=== PATIENT | female | born 1980 | race Caucasian/White ===

== ENCOUNTER 2019-03-30 06:46 | Outpatient (CLI) | payer OTHER, SELFPAY ==
[2019-03-30 07:52] LABS: Cholesterol 183 mg/dL (0-200); HDL Direct 52 mg/dL; Triglycerides 66 mg/dL (<150)
[2019-03-30 08:03] LABS: LDL Cholesterol Direct 107 mg/dL
[2019-03-30 08:23] LABS: Thyroid Stimulating Hormone 0.985 uIU/mL (0.465-4.680)
== END 2019-03-30 06:47 | disposition home or self-care (01) ==
PROVIDERS: PCP Internal Medicine; Visit Provider Nurse Practitioner Family
DX: R94.5 Abnormal results of liver function studies (principal); F41.9 Anxiety disorder, unspecified
CPT/HCPCS: 36415; 80061; 84443

== ENCOUNTER 2019-10-12 15:29 | Outpatient (CLI) | payer OTHER, SELFPAY ==
[2019-10-12 16:27] LABS: Alanine Aminotransferase 38 U/L (4-35); Albumin Level 4.4 g/dL (3.5-5.1); Alkaline Phosphatase 66 U/L (38-126); Anion Gap 6 mmol/L (8-16); Aspartate Amino Transferase 38 U/L (14-36); Bilirubin,Total 0.5 mg/dL (0.2-1.3); Blood Urea Nitrogen 13 mg/dL (7-17); Calcium 8.7 mg/dL (8.4-10.2); Carbon Dioxide 27 mmol/L (22-30); Chloride 103 mmol/L (98-107); Estimated Glomerular Filt Rate > 60; Glucose 90 mg/dL (65-105); Potassium 4.3 mmol/L (3.4-5.0); Sodium 136 mmol/L (137-145)
== END 2019-10-12 15:30 | disposition home or self-care (01) ==
PROVIDERS: PCP Internal Medicine; Visit Provider Internal Medicine
DX: R94.5 Abnormal results of liver function studies (principal)
CPT/HCPCS: 36415; 80053

== ENCOUNTER 2020-02-23 09:34 | Outpatient (CLI) | payer OTHER, SELFPAY ==
--- NOTE | ~2020-02-23 | MR_ITS ---
EXAMINATION: MR brain/brain stem wo con EXAM DATE: 02/23/2020 11:02 INDICATION: Intractable left-sided predominant headaches. TECHNIQUE: Magnetic resonance imaging (MRI) of the brain/brain stem obtained without contrast. David al T1, axial diffusion, gradient echo (T2*), T1, T2, FLAIR sequences obtained. There is no prior st udy for comparison. FINDINGS: There are no areas of restricted diffusion to suggest acute infarction. There is no acute hemorrhage seen on the T2*, a hemosiderin sensitive sequence. No intraparenchymal brain mass. The ve ntricles are normal in size. There are no extra-axial collections. Flow voids are seen in the cereb ral arteries on the T2-weighted sequences consistent with their expected patency. The orbits are unr emarkable. Soft tissue is unremarkable. IMPRESSION: 1. Unremarkable brain MRI examination. Reviewed, dictated and finalized at location B. T OIL OPERATOR
== END 2020-02-23 09:35 | disposition home or self-care (01) ==
LOC: ANHIMG 09:43
PROVIDERS: PCP Internal Medicine; Visit Provider Internal Medicine
DX: R51.9 Headache, unspecified (principal)
CPT/HCPCS: 70551

== ENCOUNTER 2020-06-20 15:23 | Outpatient (CLI) | payer OTHER, SELFPAY ==
--- NOTE | ~2020-06-20 | MR_ITS ---
EXAMINATION: MR TMJS DATE: 06/20/2020 16:19 INDICATION: Left-sided jaw pain with popping sounds and ear pain TECHNIQUE: Magnetic resonance imaging (MRI) of the temporomandibular joints was performed without int ravenous contrast. Sequences included closed-mouth sagittal T2-weighted FSE and PD-weighted FSE and c oronal T1-weighted SE and open-mouth sagittal T2-weighted FSE and PD-weighted FSE and coronal T1-weig hted SE. COMPARISON: None. FINDINGS: The right temporomandibular joint demonstrates normal morphology of the mandibular condyle and tempor omandibular fossa with no osteophytosis or erosions. Normal biconcave morphology of the disc which is normally located in the closed and open mild positions. The bilaminar zone and lateral pterygoid mus cles and tendons appear normal. The left temporomandibular joint demonstrates normal morphology of the mandibular condyle and temporo mandibular fossa with no osteophytosis or erosions. Normal biconcave morphology of the disc which is normally located in the closed and open mild positions. The bilaminar zone and lateral pterygoid musc les and tendons appear normal. Mucous retention cyst in the right maxillary sinus. Cervical thoracic dextrocurvature. IMPRESSION: 1. Normal bilateral temporomandibular joints with normal position and morphology of the articular dis cs. Reviewed, dictated and finalized at location A. IMPRESSION: 1. Normal bilateral temporomandibular joints with normal position and morpholog y of the articular discs.
== END 2020-06-20 15:24 | disposition home or self-care (01) ==
PROVIDERS: PCP Internal Medicine; Visit Provider Dentist General Practice
DX: M26.632 Articular disc disorder of left temporomandibular joint (principal); M26.622 Arthralgia of left temporomandibular joint
CPT/HCPCS: 70336

== ENCOUNTER 2020-07-17 07:50 | Observation (INO) | payer OTHER, SELFPAY ==
--- NOTE | 2020-07-17 | ECHO_ITS ---
Patient Info Name: Ellen Stock Age: 40 years : 1980 Gender: Female Ht: 62 in Wt: 195 lbs BSA: 2.01 m2 HR: 78 bpm BP: 117 / 87 mmHg Technical Quality: Good Exam Date: 07/17/2020 2:48 PM Exam Location: [facility] Patient Status: Inpatient Admit Date: 07/17/2020 Staff Ordering Physician: Kurt Fisher MD End F[employer]isting Department: Mita Neff RDCS Attending Provider: Preston Chou MD Exam Type: CA echo doppler color flow Study Info Indications R07.9 - Chest pain, unspecified Complete two-dimensional, color flow and Doppler transthoracic echocardiogram is performed. Summary 1. Complete two-dimensional, color flow and Doppler transthoracic echocardiogram is performed. 2. Left ventricular systolic function is normal, estimated at 60-65%. Left Ventricle Left ventricular chamber dimension is normal. Left ventricular systolic function is normal, estimated at 60-65%. There is no increased left ventricular wall thickness. Left ventricular septal wall motion is normal. The left ventricular diastolic function is normal. Right Ventricle Right ventricular chamber dimension is normal. Right ventricular systolic function is normal. Left Atria Left atrial chamber dimension is normal. Right Atria Right atrial chamber dimension is normal. Aortic Valve The aortic valve is trileaflet. There is no aortic valve sclerosis. There is no aortic valve stenosis. There is no aortic valve regurgitation. Pulmonic Valve The pulmonic valve is normal. There is no pulmonic valve stenosis. There is trace pulmonic regurgitation. Mitral Valve The mitral valve has normal leaflets. There is no mitral valve stenosis. There is no mitral valve regurgitation. Tricuspid Valve The tricuspid valve leaflets are normal. There is no significant tricuspid valve stenosis. There is no tricuspid valve regurgitation. No pulmonary hypertension, estimated pulmonary arterial systolic pressure is 30 mmHg. Pericardium/Pleural The pericardium appears normal. There is no pericardial effusion. Inferior Vena Cava Normal inferior vena cava with >50% collapse upon inspiration consistent with Empty right atrial pressure, 10 mmHg. Aorta The aortic root size at the sinus of Valsalva is normal. The prox ascending aorta size is normal. Left Ventricular Outflow Tract Name Value Normal LVOT 2D LVOT Diameter 2.0 cm LVOT Doppler LVOT Peak Velocity 103 cm/s LVOT Peak Gradient 4 mmHg LVOT Mean Gradient 2 mmHg LVOT VTI 19 cm LVOT VTI/AV VTI Ratio 0.7 LVOT Stroke Volume 59 ml LVOT CO 4.9 l/min LVOT CI 2.4 l/min/m2 Pulmonic Valve Name Value Normal RVOT Doppler
--- NOTE | ~2020-07-17 | CT_ITS ---
EXAMINATION: CTA chest PE protocol DATE: 07/17/2020 17:27 CDT INDICATION: Chest pain TECHNIQUE: Computed tomographic angiography (CTA) of the chest was performed with 100 mL Omnipaque-35 0 intravenous contrast. The dose-length product was 412.16 mGy-cm. Maximum intensity projection 3D-re constructions of the aorta and other arteries were constructed by the technologist on a separate work station. Automated exposure control and iterative reconstruction technique were employed. COMPARISON: CT dated 04/01/2005 FINDINGS: Study is technically adequate without evidence for pulmonary embolism. No significant pleur al or pericardial effusion. No evidence for aortic aneurysm or dissection. Small hiatal hernia. Heart size normal. No thoracic lymphadenopathy. There is soft tissue in the anterior mediastinum, likely residual thymus. No endobronchial lesions. D ependent atelectasis. No focal airspace consolidation. No pneumothorax. No acute osseous abnormality. IMPRESSION: 1. No acute cardiopulmonary disease. No evidence for pulmonary embolism. Reviewed, dictated and finalized at location A.
--- NOTE | ~2020-07-17 | XR_ITS ---
EXAMINATION: XR chest 2V DATE: 07/17/2020 08:11 INDICATION: Central chest pain TECHNIQUE: PA and lateral views of the chest are obtained. COMPARISON: 02/18/2019 FINDINGS: The lungs are free of acute opacities. There is no pleural effusion or pneumothorax. The ca rdiomediastinal silhouette is normal. The visualized bones and soft tissues are unremarkable. Surgica l clips in the right upper quadrant are likely from prior cholecystectomy. IMPRESSION: 1. No acute cardiopulmonary abnormality. Reviewed, dictated and finalized at location A.
[2020-07-17 07:54] VITALS: BP 129/82; PULSE 92; RESP 21; TEMP 36.8; O2SAT 100
--- NOTE | 2020-07-17 08:04 | ECG_ITS ---
Measurements Intervals [place] Rate: 95 P: 57 MD: 160 QRS: 85 QRSD: 89 T: 47 QT: 355 QTc: 447 Interpretive Statements SINUS RHYTHM NORMAL ECG Electronically Signed On 07-17-2020 13:51:33 CDT by Ulices Campos D.O.
[2020-07-17 08:16] LABS: Basophils Absolute Auto 0.1 K/mm3 (0.0-0.1); Basophils Percent Auto 0.7 % (0.2-1.2); Eosinophils Absolute Auto 0.1 K/mm3 (0-0.3); Eosinophils Percent Auto 1.6 % (0-4.4); Hematocrit 37.6 % (37.0-47.0); Hemoglobin 12.9 g/dL (12.0-15.0); Immature Granulocyte Absolute 0.06 K/mm3 (0.00-0.031); Immature Granulocyte Percent A 0.9 % (0-0.5); Lymphocytes Absolute Auto 2.54 K/mm3 (0.9-3.2); Lymphocytes Percent Auto 36.9 % (18.3-44.2); Mean Corpuscular HGB Conc 34.3 g/dl (32-36); Mean Corpuscular Hemoglobin 30.9 pg (26-34); Mean Platelet Volume 9.5 fl (7.4-10.4); Monocytes Absolute Auto 0.6 K/mm3 (0.1-0.6); Monocytes Percent Auto 8.3 % (2.6-8.5); Neutrophils Absolute Auto 3.6 K/mm3 (1.3-6.7); Neutrophils Percent Auto 51.6 % (45.5-73.1); Platelet Count Result 227 k/mm3 (150-375); Red Blood Count 4.18 M/mm3 (4.2-5.4); Red Cell Distribution Width 12.2 % (11.5-14.5); White Blood Count 6.9 K/mm3 (4.5-10.0)
--- NOTE | 2020-07-17 08:23 | ED.CHESTPAIN ---
HPI - Chest Pain General Chief Complaint: Chest Pain Stated Complaint: CP Time Seen by Provider: 07/17/20 07:58 Source: RN notes reviewed History of Present Illness HPI narrative: Patient presents to emergency room from home for chest pain. Patient states she was seen at her desk approximately 7 AM this morning she had midsternal chest pain rating to his bilateral shoulders and her back. Described as a pressure associated with nausea and a feeling of shortness of breath. Patient states she is still in the pain at this time states nothing makes the pain better or worse she denies any fevers or chills abdominal pain vomiting or any other symptoms denies any previous cardiac history Related Data Allergies Allergy/AdvReac Type Severity Reaction Status Date / Time No Known Allergies Allergy Unknown Verified 07/17/20 08:06 Review of Systems Review of Systems: Narrative: Gen.: Denies fevers or chills ENT: Denies congestion Respiratory: Reports shortness of breath CV: See HPI GI: Denies abdominal pain emesis or diarrhea ports nausea Musculoskeletal: Denies back pain or muscle pain Neuro: Denies numbness, tingling, weakness or focal weakness Skin: Denies rash Except as documented, all other systems reviewed and negative [facility] Past Medical History Medical History (Updated 07/17/20 @ 11:35 by Donald Pro DO) Patient denies significant medical history Family History Family History (Updated 10/21/13 @ 07:13 by DOCTOR UNKNOWN) Grandparent Hypertension Cerebrovascular accident Malignant neoplasm of prostate Family history of coronary artery disease Diabetes mellitus Social History Social History Smoking status: Never smoker Second hand tobacco smoke exposure: No Alcohol intake: current Exam Narrative: Exam Narrative: APPEARANCE: No acute distress, nontoxic, resting in bed EYES: EOMI HEENT: Normocephalic, atraumatic, OMM RESPIRATORY: No respiratory distress Clear to auscultation bilaterally with no rhonchi wheezing or rales. CARDIOVASCULAR: Regular rate and rhythm without murmurs rubs or gallops. ABDOMINAL: Soft, nontender, nondistended, no rebound or guarding MUSCULOSKELETAl: Moves all extremities. No clubbing, cyanosis or edema. NEURO: Awake and alert. Following commands, speech normal, no focal deficits SKIN:: Warm, dry. No rashes lesions or abrasions PSYCHIATRIC: Normal affect/mood, Course Course Emergency Course: Discussed with Dr Fisher presentation work-up agrees with admission to the chest pain center at this time Discussed with patient and family results of workup and diagnosis. Discussed need for admission. Patient and family understand and agree to current treatment plan Vital Signs Vital signs: Vital Signs Temperature 98.3 F 07/17/20 07:54 Pulse Rate 92 07/17/20 07:54 Respiratory Rate 21 H 07/17/20 07:54 Blood Pressure 129/82 07/17/20 07:54 Pulse Oximetry 100 07/17/20 07:54 Temperature 98.3 F 07/17/20 07:54 Pulse Rate 88 07/17/20 11:05 Respiratory Rate 20 07/17/20 11:05 Blood Pressure 102/77 07/17/20 11:05 Pulse Oximetry 99 07/17/20 11:05 MDM - Chest Pain Lab Data Result diagrams: 07/17/20 08:07 07/17/20 08:07 Labs: Lab Results 07/17/20 07/17/20 07/17/20 Range/Units 08:07 08:07 08:07 WBC 6.9 (4.5-10.0) K/mm3 RBC 4.18 L (4.2-5.4) M/mm3 Hgb 12.9 (12.0-15.0) g/dL Hct 37.6 (37.0-47.0) % MCV 90.0 (80-100) fl MCH 30.9 (26-34) pg MCHC 34.3 (32-36) g/dl RDW 12.2 (11.5-14.5) % Plt Count 227 (150-375) k/mm3 MPV 9.5 (7.4-10.4) fl Immature Gran % (Auto) 0.9 H (0-0.5) % Neut % (Auto) 51.6 (45.5-73.1) % Lymph % (Auto) 36.9 (18.3-44.2) % [place] % (Auto) 8.3 (2.6-8.5) % Eos % (Auto) 1.6 (0-4.4) % Baso % (Auto) 0.7 (0.2-1.2) % Lymph # (Auto) 2.54 (0.9-3.2) K/mm3 [place] # (Auto
[2020-07-17 08:26] LABS: Anion Gap 4 mmol/L (8-16); Blood Urea Nitrogen 18 mg/dL (7-17); Carbon Dioxide 29 mmol/L (22-30); Chloride 106 mmol/L (98-107); Estimated CRCL calculation 84 ml/min; Estimated Glomerular Filt Rate > 60; Glucose 95 mg/dL (65-105); Potassium 4.8 mmol/L (3.4-5.0); Sodium 139 mmol/L (137-145)
[2020-07-17 08:27] LABS: INR 0.9; Prothrombin Time 12.7 Seconds (11.1-14.7)
[2020-07-17 08:28] LABS: Partial Thromboplastin Time 27.2 SECONDS (22.3-36.8)
[2020-07-17 08:34] VITALS: BP 106/81; PULSE 86; RESP 20; O2SAT 100
[2020-07-17 08:38] LABS: Troponin I < 0.012 ng/mL (0.000-0.034)
[2020-07-17 08:47] LABS: Alanine Aminotransferase 29 U/L (4-35); Albumin Level 4.3 g/dL (3.5-5.1); Alkaline Phosphatase 73 U/L (38-126); Aspartate Amino Transferase 70 U/L (14-36); Bilirubin,Total 0.2 mg/dL (0.2-1.3); Lipase 108 U/L (23-300)
[2020-07-17] MEDS: KETOROLAC 30 MG/ML VIAL (*BKC) IV PUSH (09:03)
[2020-07-17 09:13] LABS: D Dimer 0.36 ug/mL (<0.48)
[2020-07-17 09:34] VITALS: BP 103/75; PULSE 83; RESP 20; O2SAT 100
[2020-07-17 10:10] VITALS: BP 102/77; PULSE 89; RESP 20; O2SAT 100
[2020-07-17] MEDS: ASPIRIN 81 MG CHEWABLE TABLET 324 MG PO (10:17)
[2020-07-17] MEDS: MORPHINE SULFATE (*CRX) 2 MG/ML INJ IV PUSH (10:17)
[2020-07-17 11:05] VITALS: BP 102/77; PULSE 88; RESP 20; O2SAT 99
[2020-07-17 12:23] LABS: Cholesterol 155 mg/dL (0-200); HDL Direct 56 mg/dL; Triglycerides 87 mg/dL (<150)
[2020-07-17 12:33] LABS: LDL Cholesterol Direct 77 mg/dL
[2020-07-17 12:35] LABS: Troponin I < 0.012 ng/mL (0.000-0.034)
[2020-07-17 12:38] VITALS: BP 117/87; PULSE 77; RESP 14; TEMP 36.6; O2SAT 100; BMI 35.4
--- NOTE | 2020-07-17 14:18 | PM.IMHP ---
H&P: HPI History of Present Illness Date/Time: 07/17/20 14:18 CHIEF COMPLAINT IS CHEST PAIN 40-year-old lady, no significant past history, came to hospital because of chest pain started this morning. She stated that she was at work at 7:00 a.m. this morning started having sudden onset of retrosternal pain with radiation to the shoulder, both shoulders, pain is constant, since the morning so far cardiac enzymes are negative and EKG is unremarkable, no known history of cardiac disease no previous chest pain. Her pain slightly improved since admission to the hospital with that she has no shortness breath no dizziness no lightheadedness. She gets occasional heartburn, but no known peptic ulcer disease Chief Complaint: Chest pain Review of Systems Constitutional: Constitutional: Reports as per HPI Cardiovascular: Cardiovascular: Reports as per HPI Respiratory: Respiratory: Reports as per HPI Gastrointestinal: Gastrointestinal: Reports as per HPI [facility] Past Medical History Medical History (Updated 07/17/20 @ 15:33 by Kurt Fisher MD) Patient denies significant medical history Surgical History Surgical History (Updated 07/17/20 @ 15:32 by Kurt Fisher MD) History of hysterectomy Family History Family History Grandparent Hypertension Cerebrovascular accident Malignant neoplasm of prostate Family history of coronary artery disease Diabetes mellitus Social History Social History Smoking status: Never smoker Second hand tobacco smoke exposure: No Alcohol intake: current Drinks per week: 3 Alcohol use details: 3-4 drinks per week Substance use: never Substance use type: does not use Living arrangements: with family Gender identity (if verbalized by the patient): Female Meds Home Medications and Allergies Home Medications Medication Instructions Recorded Confirmed Type buspirone 30 mg PO BID 07/17/20 07/17/20 History cyclobenzaprine 10 mg PO BID PRN 07/17/20 07/17/20 History escitalopram oxalate 20 mg PO DAILY 07/17/20 07/17/20 History famotidine 20 mg PO BID 07/17/20 07/17/20 History nortriptyline 10 - 20 mg PO HS PRN 07/17/20 07/17/20 History verapamil 120 mg PO DAILY 07/17/20 07/17/20 History Allergies Allergy/AdvReac Type Severity Reaction Status Date / Time No Known Allergies Allergy Unknown Verified 07/17/20 08:06 Vital Signs Vital Signs - 24 hr 07/17/20 07:54 07/17/20 08:34 07/17/20 09:34 Temperature 36.8 C Pulse Rate 92 86 83 Respiratory Rate 21 H 20 20 Blood Pressure 129/82 106/81 103/75 Pulse Oximetry 100 100 100 07/17/20 10:10 07/17/20 11:05 07/17/20 12:38 Temperature 36.6 C Pulse Rate 89 88 77 Respiratory Rate 20 20 14 Blood Pressure 102/77 102/77 117/87 Pulse Oximetry 100 99 100 Exam Narrative: Exam Narrative: Awake alert oriented x3 not in acute distress Neck is supple no obvious JVD, no carotid bruit Chest: Good air entry bilaterally, lungs are clear to auscultation and percussion bilaterally Cardiovascular: Regular rate and rhythm, 2/6 systolic murmur noted left sternal border Abdomen: Soft nontender bowel sounds positive Extremities: No edema has good pulses distally bilaterally H&P: Results Labs Labs: Short CBC 07/17/20 Range/Units 08:07 WBC 6.9 (4.5-10.0) K/mm3 Hgb 12.9 (12.0-15.0) g/dL Hct 37.6 (37.0-47.0) % Plt Count 227 (150-375) k/mm3 [facility] 07/17/20 08:07 Sodium 139 Potassium 4.8 Chloride 106 Carbon Dioxide 29 BUN 18 H Creatinine 0.80 Glucose 95 Calcium 9.0 Cardiac Enzymes 07/17/20 07/17/20 Range/Units 08:07 12:01 Troponin I < 0.012 < 0.012 (0.000-0.034) ng/mL Liver Function 07/17/20 Range/Units 08:07 Total Bilirubin 0.2 (0.2-1.3) mg/dL Direct Bilirubin 0.0 (0-0.3) mg/dL AST 70 H (14-36) U/L ALT 29 (4-35) U/L Alkaline Phosphata
[2020-07-17 14:32] LABS: Troponin I < 0.012 ng/mL (0.000-0.034)
--- NOTE | 2020-07-17 16:14 | ECG_ITS ---
Measurements Intervals [place] Rate: 80 P: 49 GA: 162 QRS: 72 QRSD: 100 T: 53 QT: 362 QTc: 419 Interpretive Statements SINUS RHYTHM BASELINE ARTIFACT- I, II, III, AVR, AVL, AVF NORMAL ECG Electronically Signed On 07-17-2020 17:13:47 CDT by Ulices Campos D.O.
--- NOTE | 2020-07-17 17:07 | PC.NURSE ---
Pt returned from CTA. No complaints of pain or discomfort. 12 lead EKG completed. IV removed from left arm, catheter intact. No redness or swelling at the site. Discharge instructions reviewed with patient and family member. Instructed on importance of safety when driving if having chest pain symptoms. Discharged to home via personal vehicle.
--- NOTE | 2020-07-17 18:08 | PM.DS ---
DS: Admitting Diagnosis Admitting Diagnosis Admitting Diagnosis: Atypical chest pain DS: Discharge Diagnosis Discharge Diagnosis (1) Chest pain: Code(s): R07.9 - Chest pain, unspecified Status: Acute Assessment and Plan: She has atypical chest pain, however seems to have persistent pain, will start on Protonix 40 twice a day, see if she has any significant improvement with that. So far cardiac enzymes are negative and EKG is unremarkable, will get echocardiogram to look for any structural heart disease, consider CTA of the chest if she has continued chest pain (2) GERD (gastroesophageal reflux disease): Code(s): K21.9 - Gastro-esophageal reflux disease without esophagitis Status: Acute Assessment and Plan: Started on Protonix 40 mg twice daily, will monitor for chest pain DS: Summary Hospital Course Hospital Course: Had negative workup including CTA, echo and enzymes Time Spent with Patient Time attestation: She was admitted for observation, Cardiac enzymes were negative, Echo was negative, CTA was negative Exam Narrative: Exam Narrative: Awake alert oriented x3 not in acute distress Neck is supple no obvious JVD, no carotid bruit Chest: Good air entry bilaterally, lungs are clear to auscultation and percussion bilaterally Cardiovascular: Regular rate and rhythm, 2/6 systolic murmur noted left sternal border Abdomen: Soft nontender bowel sounds positive Extremities: No edema has good pulses distally bilaterally DS: Data Data Completed and Pending Labs on day of discharge: Labs from last 24 hours 07/17/20 07/17/20 07/17/20 13:55 12:01 12:01 WBC RBC Hgb Hct MCV MCH MCHC RDW Plt Count MPV Immature Gran % (Auto) Neut % (Auto) Lymph % (Auto) [place] % (Auto) Eos % (Auto) Baso % (Auto) Lymph # (Auto) [place] # (Auto) Eos # (Auto) Baso # (Auto) Abs Immat Gran (auto) Absolute Neuts (auto) Absolute Nucleated RBC Nucleated RBC % PT INR APTT D-Dimer Sodium Potassium Chloride Carbon Dioxide Anion Gap BUN Creatinine Estim Creat Clear Calc Estimated GFR Glucose Calcium Total Bilirubin Direct Bilirubin AST ALT Alkaline Phosphatase Troponin I < 0.012 < 0.012 Total Protein Albumin Triglycerides 87 Cholesterol 155 LDL Cholesterol Direct 77 HDL Direct 56 Lipase 07/17/20 07/17/20 07/17/20 08:07 08:07 08:07 WBC RBC Hgb Hct MCV MCH MCHC RDW Plt Count MPV Immature Gran % (Auto) Neut % (Auto) Lymph % (Auto) [place] % (Auto) Eos % (Auto) Baso % (Auto) Lymph # (Auto) [place] # (Auto) Eos # (Auto) Baso # (Auto) Abs Immat Gran (auto) Absolute Neuts (auto) Absolute Nucleated RBC Nucleated RBC % PT INR APTT D-Dimer 0.36 Sodium 139 Potassium 4.8 Chloride 106 Carbon Dioxide 29 Anion Gap 4 L BUN 18 H Creatinine 0.80 Estim Creat Clear Calc 84 Estimated GFR > 60 Glucose 95 Calcium 9.0 Total Bilirubin 0.2 Direct Bilirubin 0.0 AST 70 H ALT 29 Alkaline Phosphatase 73 Troponin I < 0.012 Total Protein 8.0 Albumin 4.3 Triglycerides Cholesterol LDL Cholesterol Direct HDL Direct Lipase 108 07/17/20 07/17/20 08:07 08:07 WBC 6.9 RBC 4.18 L Hgb 12.9 Hct 37.6 MCV 90.0 MCH 30.9 MCHC 34.3 RDW 12.2 Plt Count 227 MPV 9.5 Immature Gran % (Auto) 0.9 H Neut % (Auto) 51.6 Lymph % (Auto) 36.9 [place] % (Auto) 8.3 Eos % (Auto) 1.6 Baso % (Auto) 0.7 Lymph # (Auto) 2.54 [place] # (Auto) 0.6 Eos # (Auto) 0.1 Baso # (Auto) 0.1 Abs Immat Gran (auto) 0.06 H Absolute Neuts (auto) 3.6 Absolute Nucleated RBC 0.0 Nucleated RBC % 0.0 PT 12.7 INR 0.9 APTT 27.2 D-Dimer Sodium Potassium Chloride C
== END 2020-07-17 17:00 | disposition home or self-care (01) ==
LOC: ANHED 08:24 → ANHCPC 10:28
PROVIDERS: Admitting Provider Specialist; Emergency Provider Emergency Medicine; PCP Internal Medicine; Visit Provider Specialist
DX: R07.9 Chest pain, unspecified (principal); K21.9 Gastro-esophageal reflux disease without esophagitis
CPT/HCPCS: 36415; 71046; 71275; 80048; 80061; 80076; 83690; 84484; 85025; 85380; 85610; 85730; 93005; 93306; 96374; 96375; 99285; A9270; G0378; J1885; J2270; Q9967

== ENCOUNTER 2020-09-26 10:41 | Outpatient (CLI) | payer BC, SELFPAY ==
[2020-09-26 12:08] LABS: SARS-CoV-2 RNA PCR Negative (Negative)
== END 2020-09-26 10:42 | disposition home or self-care (01) ==
LOC: CHSLAB 10:47
PROVIDERS: PCP Internal Medicine; Visit Provider Internal Medicine
DX: Z20.822 Contact with and (suspected) exposure to COVID-19 (principal)
CPT/HCPCS: C9803; U0003; U0005

== ENCOUNTER 2020-12-18 16:09 | Outpatient (CLI) | payer BC, SELFPAY ==
[2020-12-18 17:40] LABS: Alanine Aminotransferase 24 U/L (14-59); Albumin Level 4.1 g/dL (3.4-5.0); Alkaline Phosphatase 73 U/L (46-116); Anion Gap 9 mmol/L (8-16); Aspartate Amino Transferase 12 U/L (15-37); Bilirubin,Total 0.2 mg/dL (0.00-1.00); Blood Urea Nitrogen 12 mg/dL (7-18); Calcium 8.9 mg/dL (8.5-10.1); Carbon Dioxide 28 mmol/L (21-32); Chloride 101 mmol/L (98-108); Estimated Glomerular Filt Rate > 60; Glucose 78 mg/dL (70-99); Osmolality Calculated 284 mOsm/kg (285-295); Potassium 3.9 mmol/L (3.5-5.1); Sodium 138 mmol/L (136-145); Total Protein 7.3 g/dL (6.4-8.2)
== END 2020-12-18 16:10 | disposition home or self-care (01) ==
LOC: CHSLAB 16:12
PROVIDERS: PCP Internal Medicine; Visit Provider Internal Medicine
DX: R94.5 Abnormal results of liver function studies (principal)
CPT/HCPCS: 36415; 80053

== ENCOUNTER 2021-01-17 07:41 | Outpatient (CLI) | payer BC, SELFPAY ==
[2021-01-17 08:53] LABS: Alanine Aminotransferase 20 U/L (14-59); Albumin Level 3.9 g/dL (3.4-5.0); Alkaline Phosphatase 73 U/L (46-116); Anion Gap 10 mmol/L (8-16); Aspartate Amino Transferase 11 U/L (15-37); Bilirubin,Total 0.4 mg/dL (0.00-1.00); Blood Urea Nitrogen 14 mg/dL (7-18); Calcium 8.9 mg/dL (8.5-10.1); Carbon Dioxide 25 mmol/L (21-32); Chloride 105 mmol/L (98-108); Cholesterol 200 mg/dL (0-200); Creatine Kinase 83 U/L (26-192); Estimated Glomerular Filt Rate > 60; Glucose 97 mg/dL (70-99); HDL Direct 57 mg/dL (40-60); LDL Cholesterol Calculated 130 mg/dL (<130); Osmolality Calculated 290 mOsm/kg (285-295); Potassium 4.7 mmol/L (3.5-5.1); Sodium 140 mmol/L (136-145); Triglycerides 65 mg/dL (0-150)
== END 2021-01-17 07:42 | disposition home or self-care (01) ==
LOC: CHSLAB 07:43
PROVIDERS: PCP Internal Medicine; Visit Provider Specialist
DX: E78.2 Mixed hyperlipidemia (principal)
CPT/HCPCS: 36415; 80053; 80061; 82550

== ENCOUNTER 2021-03-09 07:27 | Outpatient (CLI) | payer BC, SELFPAY ==
[2021-03-09 07:48] LABS: Basophils Absolute Auto 0.05 K/mm3 (0.00-0.10); Basophils Percent Auto 0.8 % (0.0-1.0); Eosinophils Absolute Auto 0.11 K/mm3 (0.02-0.50); Eosinophils Percent Auto 1.8 % (1.0-6.0); Hematocrit 37.6 % (35.0-49.0); Hemoglobin 12.9 g/dL (12.0-15.0); Immature Granulocyte Absolute 0.04 K/mm3 (0.00-0.00); Immature Granulocyte Percent A 0.7 % (0.0-0.0); Lymphocytes Absolute Auto 2.08 K/mm3 (1.10-4.50); Lymphocytes Percent Auto 34.7 % (18.0-42.0); Mean Corpuscular HGB Conc 34.3 g/dL (32.0-36.0); Mean Corpuscular Hemoglobin 30.9 pg (27.0-31.0); Mean Corpuscular Volume 90.2 fL (78.0-102.0); Mean Platelet Volume 9.1 fl (9.2-11.8); Monocytes Absolute Auto 0.47 K/mm3 (0.10-0.90); Monocytes Percent Auto 7.8 % (2.0-11.0); Neutrophils Absolute Auto 3.2 K/mm3 (1.7-7.2); Neutrophils Percent Auto 54.2 % (50.0-70.0); Platelet Count Result 212 K/mm3 (150-420); Red Blood Count 4.17 M/mm3 (4.20-5.40); Red Cell Distribution Width 12.8 % (11.6-14.4)
[2021-03-09 08:46] LABS: Alanine Aminotransferase 48 U/L (14-59); Albumin Level 3.8 g/dL (3.4-5.0); Alkaline Phosphatase 91 U/L (46-116); Anion Gap 13 mmol/L (8-16); Aspartate Amino Transferase 20 U/L (15-37); Bilirubin,Total 0.2 mg/dL (0.00-1.00); Blood Urea Nitrogen 16 mg/dL (7-18); Calcium 8.3 mg/dL (8.5-10.1); Carbon Dioxide 23 mmol/L (21-32); Chloride 105 mmol/L (98-108); Cholesterol 171 mg/dL (0-200); Estimated Glomerular Filt Rate > 60; Folic Acid 18.1 ng/mL (8.6->20); Free T4 Free Thyroxine 0.87 ng/dL (0.76-1.46); Glucose 103 mg/dL (70-99); HDL Direct 54 mg/dL (40-60); Iron 41 ug/dL (50-170); LDL Cholesterol Calculated 106 mg/dL (<130); Osmolality Calculated 293 mOsm/kg (285-295); Percent Iron Saturation 12 % (12-57); Potassium 4.3 mmol/L (3.5-5.1); Sodium 141 mmol/L (136-145); Total Protein 7.1 g/dL (6.4-8.2); Triglycerides 53 mg/dL (0-150); Vitamin B12 664 pg/mL (193-986)
[2021-03-13 14:35] LABS: Vitamin D 25 Hydroxy 34 ng/mL (30-100)
== END 2021-03-09 07:28 | disposition home or self-care (01) ==
LOC: CHSLAB 07:32
PROVIDERS: PCP Internal Medicine
DX: R53.83 Other fatigue (principal)
CPT/HCPCS: 36415; 80053; 80061; 82306; 82607; 82746; 83540; 83550; 84439; 84443; 85025

== ENCOUNTER 2021-05-09 09:48 | Emergency (ER) | payer BC, SELFPAY ==
--- NOTE | ~2021-05-09 | CT_ITS ---
EXAMINATION: CT abdomen pelvis w con DATE: 05/09/2021 11:36 INDICATION: Gastrointestinal hemorrhage. Nausea. TECHNIQUE: Computed tomography (CT) of the abdomen and pelvis was performed with 100 mL Omnipaque 350 intravenous contrast. Automated exposure control and iterative reconstruction technique were employe d. The dose-length product was 959.46 mGy-cm. COMPARISON: CT abdomen and pelvis 08/05/2013 FINDINGS: The visualized portions of the lung bases demonstrate minimal atelectasis. No pleural effus ion. The heart size is normal. No pericardial effusion. The liver and spine are normal. There are bird nges of cholecystectomy. The pancreas, adrenal glands, and kidneys are normal. There are no dilated l oops of bowel. The appendix is not visualized. There are no pathologically enlarged lymph nodes. Ther e is no free intraperitoneal fluid. There is mild thoracolumbar spondylosis. IMPRESSION: 1. No etiology for the patient's symptoms. Reviewed, dictated and finalized at location A.
[2021-05-09 09:54] VITALS: BP 126/83; PULSE 112; RESP 18; TEMP 36.6; O2SAT 98
[2021-05-09 10:17] LABS: Basophils Percent Auto 0.5 % (0.2-1.2); Eosinophils Absolute Auto 0.1 K/mm3 (0-0.3); Eosinophils Percent Auto 1.4 % (0-4.4); Hematocrit 39.9 % (37.0-47.0); Hemoglobin 13.8 g/dL (12.0-15.0); Immature Granulocyte Absolute 0.03 K/mm3 (0.00-0.031); Immature Granulocyte Percent A 0.5 % (0-0.5); Lymphocytes Absolute Auto 2.21 K/mm3 (0.9-3.2); Lymphocytes Percent Auto 38.6 % (18.3-44.2); Mean Corpuscular HGB Conc 34.6 g/dl (32-36); Mean Corpuscular Hemoglobin 31.4 pg (26-34); Mean Corpuscular Volume 90.7 fl (80-100); Mean Platelet Volume 9.3 fl (7.4-10.4); Monocytes Absolute Auto 0.4 K/mm3 (0.1-0.6); Monocytes Percent Auto 6.5 % (2.6-8.5); Neutrophils Percent Auto 52.5 % (45.5-73.1); Platelet Count Result 236 k/mm3 (150-375); Red Cell Distribution Width 12.4 % (11.5-14.5); White Blood Count 5.7 K/mm3 (4.5-10.0)
[2021-05-09 10:29] LABS: INR 0.9; Partial Thromboplastin Time 30.3 SECONDS (22.3-36.8); Prothrombin Time 12.2 Seconds (11.1-14.7)
[2021-05-09 10:32] LABS: Alanine Aminotransferase 23 U/L (4-35); Albumin Level 4.7 g/dL (3.5-5.1); Alkaline Phosphatase 77 U/L (38-126); Anion Gap 6 mmol/L (8-16); Aspartate Amino Transferase 32 U/L (14-36); Bilirubin,Total 0.4 mg/dL (0.2-1.3); Blood Urea Nitrogen 13 mg/dL (7-17); Calcium 8.9 mg/dL (8.4-10.2); Carbon Dioxide 28 mmol/L (22-30); Chloride 102 mmol/L (98-107); Estimated CRCL calculation 99 ml/min; Estimated Glomerular Filt Rate > 60; Glucose 102 mg/dL (65-110); Potassium 4.5 mmol/L (3.4-5.0); Sodium 136 mmol/L (137-145)
--- NOTE | 2021-05-09 10:43 | ED.GIBLEED ---
HPI - GI Bleed General Chief complaint: GI Bleed Stated complaint: rectal bleeding Time Seen by Provider: 05/09/21 10:18 History of Present Illness HPI Narrative: 41-year-old female presents to the emergency room complaining of blood in her stool for 6 weeks. Patient has been seen by her PCP twice, states yesterday she was seen and he performed an occult stool test that was positive. Patient complains of lower abdominal pain with nausea. Patient has had multiple abdominal surgeries including cholecystectomy, hysterectomy. Patient states that she occasionally feels lightheaded and dizzy. Related Data Home Medications Medication Instructions Recorded Confirmed buspirone 30 mg PO BID 07/17/20 07/17/20 cyclobenzaprine 10 mg PO BID PRN 07/17/20 07/17/20 escitalopram oxalate 20 mg PO DAILY 07/17/20 07/17/20 famotidine 20 mg PO BID 07/17/20 07/17/20 nortriptyline 10 - 20 mg PO HS PRN 07/17/20 07/17/20 verapamil 120 mg PO DAILY 07/17/20 07/17/20 Allergies Allergy/AdvReac Type Severity Reaction Status Date / Time No Known Allergies Allergy Unknown Verified 05/09/21 10:03 Review of Systems Review of Systems: CONSTITUTIONAL: Denies fever, chills, or sweats. EYES: Denies visual changes, redness, or discharge. ENT: Denies rhinorrhea, congestion, sore throat, or otalgia. CARDIOVASCULAR: Denies chest pain, palpitations, or edema. RESPIRATORY: Denies cough or dyspnea. GASTROINTESTINAL: Reports lower abdominal pain, nausea, hematochezia. GENITOURINARY: Denies dysuria or hematuria. SKIN: Denies rash or itching. MUSCULOSKELETAL: Denies back pain, joint pain, or myalgia. NEUROLOGIC: Denies headache, numbness, dizziness, or weakness. PSYCHIATRIC: Denies anxiety or depression. [facility] Past Medical History Medical History Patient denies significant medical history Surgical History Surgical History History of hysterectomy Family History Family History Grandparent Hypertension Cerebrovascular accident Malignant neoplasm of prostate Family history of coronary artery disease Diabetes mellitus Social History Social History Smoking status: Never smoker Second hand tobacco smoke exposure: No Alcohol intake: current Drinks per week: 3 Alcohol use details: 3-4 drinks per week Substance use: never Substance use type: does not use Gender identity (if verbalized by the patient): Female Exam Narrative: GENERAL: Well-appearing, well-nourished, and in no acute distress. HEAD: Normocephalic, atraumatic. EYES: PERRLA and EOMI. ENT: Nares clear, no rhinorrhea or epistaxis. Mucous membranes moist. NECK: Supple. No adenopathy or masses. No carotid bruits or JVD CHEST: Clear to auscultation. No respiratory distress. No wheezes rales or rhonchi HEART: Regular rate and rhythm. No murmur heard. Normal peripheral pulses. ABDOMEN: Soft, lower abdominal tenderness, nondistended, normal active bowel sounds. EXTREMITIES: Normal range of motion. No edema. SKIN: Warm, dry, no rash. NEURO: No focal deficits. Alert and oriented x3. PSYCH: Normal mood and affect. Course Course Emergency Course: 1200: Hemocult positive 1320: Spoke to Dr. Estrella regarding patient's case. Recommends course of stool softeners and follow-up in his office to schedule for colonoscopy. Vital Signs Vital signs: Vital Signs Temperature 36.6 C 05/09/21 09:54 Pulse Rate 112 H 05/09/21 09:54 Respiratory Rate 18 05/09/21 09:54 Blood Pressure 126/83 05/09/21 09:54 Pulse Oximetry 98 05/09/21 09:54 Temperature 36.6 C 05/09/21 09:54 Pulse Rate 112 H 05/09/21 09:54 Respiratory Rate 18 05/09/21 09:54 Blood Pressure 126/83 05/09/21 09:54 Pulse Oximetry 98 05/09/21 09:54 MDM - GI Bleed MDM Narrativ
[2021-05-09 13:35] VITALS: BP 136/86; PULSE 84; RESP 16; O2SAT 99
== END 2021-05-09 13:40 | disposition home or self-care (01) ==
PROVIDERS: Emergency Medicine; Emergency Provider Nurse Practitioner Family; PCP Internal Medicine
DX: K92.1 Melena (principal)
CPT/HCPCS: 36415; 74177; 80053; 85025; 85610; 85730; 99284; Q9967

== ENCOUNTER 2021-05-29 00:12 | Day surgery (SDC) | payer BC, SELFPAY ==
[2021-05-16 15:31] VITALS: BMI 37.5
[2021-05-29 11:58] VITALS: BP 116/79; PULSE 87; RESP 18; TEMP 36.4; O2SAT 99
[2021-05-29] MEDS: LACTATED RINGERS 1,000 ML 150 ML IV CONT (12:00)
--- NOTE | 2021-05-29 12:06 | WPDHPUPDATE1 ---
History and Physical Update Update Date/Time: 05/29/21 12:06 History and Physical has been reviewed, including an updated exam of the patient. There are NO changes in the patient's condition. Risks, benefits, and alternatives have been discussed and questions answered. Patient agrees to proceed with procedure.
--- NOTE | 2021-05-29 12:48 | WPDANESEPPF ---
Anes - Initial Pre Proc Eval Procedure: Operation Date: 05/29/21 13:00 Proposed Procedures p Colonoscopy - Collin Hayes MD Date/Time: 05/29/21 12:48 Surgeon: Collin Hayes MD Pre Op Diagnosis: Rectal bleed Patient Data Age: 41 Gender: F Height: 1.57 m Weight: 90.7 kg Last Vital Signs Temp 97.6 F 05/29/21 11:58 Pulse 87 05/29/21 11:58 Resp 18 05/29/21 11:58 BP 116/79 05/29/21 11:58 Pulse Ox 99 05/29/21 11:58 Allergies Allergy/AdvReac Type Severity Reaction Status Date / Time No Known Allergies Allergy Unknown Verified 05/29/21 11:57 Home Medications Medication Instructions Recorded Confirmed Type buspirone 30 mg PO BID 07/17/20 05/29/21 History nortriptyline 10 - 20 mg PO HS PRN 07/17/20 05/29/21 History pantoprazole 40 mg PO Q12HR 30 Days #60 tablet 07/17/20 05/29/21 Rx verapamil 120 mg PO DAILY 07/17/20 05/29/21 History sertraline 100 mg tablet 100 mg PO BID tablet 05/10/21 05/29/21 History Patient hx anesthesia problems: none Family hx anesthesia problems: none Results Review: All pre-operative results and documents have been reviewed as part of the pre-operative evaluation. [facility] Past Medical History Medical History (Updated 05/10/21 @ 16:05 by VIKTORIA Cardozo) Abdominal adhesions Obese Patient denies significant medical history Surgical History Surgical History (Updated 05/10/21 @ 14:40 by VIKTORIA Cardozo) History of cholecystectomy History of hysterectomy Family History Family History Grandparent Hypertension Cerebrovascular accident Malignant neoplasm of prostate Family history of coronary artery disease Diabetes mellitus Social History Social History Smoking status: Never smoker Second hand tobacco smoke exposure: No Alcohol intake: current Drinks per week: 2 Alcohol use details: socially on the weekend Substance use: never Substance use type: does not use Living arrangements: with family Gender identity (if verbalized by the patient): Female Spiritual care concerns: No Anes - Eval Final PreProcedure Day of Procedure 05/29/21 12:48 Patient weight: obese Heart: regular rate and rhythm Lungs: clear to auscultation Airway: Mallampati scale class II Neurological: alert and oriented Last oral intake: >/= 8 hours ASA classification: II Emergent: no Anesthetic plan: proceed Anesthesia type and monitoring: general GIVS and standard monitoring Results Review: All pre-operative results and documents have been reviewed as part of the pre-operative evaluation. Informed Consent: The patient's anesthetic plan and its attendant risks and benefits were discussed with the patient/family/POA. Questions were solicited and answers provided to the satisfaction of the patient/family/POA.
[2021-05-29 13:23] VITALS: BP 112/79; PULSE 92; RESP 19; O2SAT 100
[2021-05-29 13:33] VITALS: BP 105/70; PULSE 86; RESP 18; O2SAT 100
[2021-05-29 13:43] VITALS: BP 119/84; PULSE 81; RESP 15; O2SAT 100
== END 2021-05-29 13:48 | disposition home or self-care (01) ==
PROVIDERS: PCP Internal Medicine; Visit Provider Internal Medicine Gastroenterology
PROC: 0DJD8ZZ Inspection of Lower Intestinal Tract, Via Natural or Artificial Opening Endoscopic (ICD-10-PCS; CPT 45378; principal; 2021-05-29 13:00)
DX: K62.5 Hemorrhage of anus and rectum (principal); K64.8 Other hemorrhoids; R11.0 Nausea; K66.0 Peritoneal adhesions (postprocedural) (postinfection); Z90.49 Acquired absence of other specified parts of digestive tract; R10.32 Left lower quadrant pain; K21.9 Gastro-esophageal reflux disease without esophagitis; E66.9 Obesity, unspecified; Z68.36 Body mass index [BMI] 36.0-36.9, adult
CPT/HCPCS: 45378; J2001; J2704; J7120

== ENCOUNTER 2021-07-09 01:05 | Day surgery (SDC) | payer BC, SELFPAY ==
[2021-07-04 14:16] VITALS: BMI 37.5
[2021-07-09 13:15] VITALS: BP 124/85; PULSE 78; RESP 16; TEMP 36.4; O2SAT 95; BMI 38.0
[2021-07-09] MEDS: LACTATED RINGERS 1,000 ML 150 ML IV CONT (13:28)
--- NOTE | 2021-07-09 13:28 | WPDHPUPDATE1 ---
History and Physical Update Update Date/Time: 07/09/21 13:28 History and Physical has been reviewed, including an updated exam of the patient. There are NO changes in the patient's condition. Risks, benefits, and alternatives have been discussed and questions answered. Patient agrees to proceed with procedure.
--- NOTE | 2021-07-09 13:39 | WPDANESEPPF ---
Anes - Initial Pre Proc Eval Procedure: Operation Date: 07/09/21 14:00 Proposed Procedures p Esophagogastroduodenoscopy - Collin Hayes MD Date/Time: 07/09/21 13:39 Surgeon: Collin Hayes MD Pre Op Diagnosis: nausea, vomiting Patient Data Age: 41 Gender: F Height: 1.57 m Weight: 94.4 kg Last Vital Signs Temp 97.5 F L 07/09/21 13:15 Pulse 78 07/09/21 13:15 Resp 16 07/09/21 13:15 BP 124/85 07/09/21 13:15 Pulse Ox 95 07/09/21 13:15 Allergies Allergy/AdvReac Type Severity Reaction Status Date / Time No Known Allergies Allergy Unknown Verified 07/09/21 13:14 Home Medications Medication Instructions Recorded Confirmed Type buspirone 30 mg PO BID 07/17/20 07/09/21 History nortriptyline 20 mg PO HS 07/17/20 07/09/21 History verapamil 120 mg PO DAILY 07/17/20 07/09/21 History sertraline 100 mg tablet 100 mg PO BID tablet 05/10/21 07/09/21 History ketorolac 0.5 % eye drops 1 drp EACH EYE Q8H 06/01/21 07/09/21 History lactobacillus combination no.9 4 400,000 cell PO DAILY 06/01/21 07/09/21 History billion cell capsule lysine 1,000 mg tablet 1,000 mg PO DAILY 06/01/21 07/09/21 History magnesium 200 mg tablet 400 mg PO DAILY tablet 06/01/21 07/09/21 History calcium polycarbophil 625 mg tablet 1,250 mg PO BID 06/07/21 07/09/21 History pantoprazole 40 mg tablet,delayed 40 mg PO BID 30 Days #60 tablet 06/07/21 07/09/21 Rx release riboflavin (vitamin B2) 400 mg 400 mg PO DAILY 06/07/21 07/09/21 History tablet spironolactone 25 mg tablet 25 mg PO DAILY 06/07/21 07/09/21 History valacyclovir 1 gram tablet 1,000 mg PO DAILY PRN 06/07/21 07/09/21 History vitamin E (dl, acetate) 180 mg 180 mg PO DAILY 06/07/21 07/09/21 History (400 unit) capsule Patient hx anesthesia problems: none Family hx anesthesia problems: none Results Review: All pre-operative results and documents have been reviewed as part of the pre-operative evaluation. [facility] Past Medical History Medical History Abdominal adhesions Obese Patient denies significant medical history Surgical History Surgical History H/O colectomy History of cholecystectomy History of hysterectomy Hx of endometriosis Family History Family History Grandparent Hypertension Cerebrovascular accident Malignant neoplasm of prostate Family history of coronary artery disease Diabetes mellitus Other Breast cancer Cancer Heart disease Kidney disease Nervous disorder Social History Social History Smoking status: Never smoker Second hand tobacco smoke exposure: No Alcohol intake: current Drinks per week: 2 Alcohol use details: socially on the weekend Substance use: never Substance use type: does not use Living arrangements: with family Additional occupation/education comments: Staff Writer Gender identity (if verbalized by the patient): Female Spiritual care concerns: No Anes - Eval Final PreProcedure Day of Procedure 07/09/21 13:39 Patient weight: obese Heart: regular rate and rhythm Lungs: clear to auscultation Airway: Mallampati scale class II Neurological: alert and oriented Last oral intake: >/= 8 hours ASA classification: II Emergent: no Anesthetic plan: proceed Anesthesia type and monitoring: general GIVS and standard monitoring Results Review: All pre-operative results and documents have been reviewed as part of the pre-operative evaluation. Informed Consent: The patient's anesthetic plan and its attendant risks and benefits were discussed with the patient/family/POA. Questions were solicited and answers provided to the satisfaction of the patient/family/POA.
[2021-07-09 14:08] VITALS: BP 90/56; PULSE 78; RESP 21; O2SAT 100
[2021-07-09 14:18] VITALS: BP 80/46; PULSE 73; RESP 20; O2SAT 100
[2021-07-09 14:28] VITALS: BP 92/53; PULSE 67; RESP 15; O2SAT 100
[2021-07-09 14:38] VITALS: BP 97/56; PULSE 68; RESP 19; O2SAT 100
== END 2021-07-09 14:52 | disposition home or self-care (01) ==
PROVIDERS: PCP Internal Medicine; Visit Provider Internal Medicine Gastroenterology
PROC: 0DJ08ZZ Inspection of Upper Intestinal Tract, Via Natural or Artificial Opening Endoscopic (ICD-10-PCS; CPT 43235; principal; 2021-07-09 14:00)
DX: R11.2 Nausea with vomiting, unspecified (principal); R10.12 Left upper quadrant pain; E66.9 Obesity, unspecified; Z68.38 Body mass index [BMI] 38.0-38.9, adult
CPT/HCPCS: 43239; 87081; J2704; J7120

== ENCOUNTER 2021-08-13 15:28 | Outpatient (CLI) | payer BC, SELFPAY ==
--- NOTE | ~2021-08-13 | US_ITS ---
EXAMINATION: US abdomen complete DATE: 08/13/2021 16:19 INDICATION: Left upper quadrant pain TECHNIQUE: Multiple grayscale and Doppler ultrasound images of the abdomen were obtained. COMPARISON: 03/03/2019 FINDINGS: The head and body of the pancreas are normal. The pancreatic tail is obscured by bowel gas. The liver is normal with normal echogenicity and echotexture. No surface nodularity. Normal hepatope dusty flow in the main portal vein. The gallbladder is surgically absent. The normal common bile duct m easures 6 mm. The visualized portions of the aorta and inferior vena cava are normal. The right kidney measures 10.5 x 4.3 x 5.1 cm. The left kidney measures 10.4 x 6.5 x 5.3 cm. The kidn eys demonstrate normal parenchymal echogenicity. There is no hydronephrosis. The spleen is normal in appearance and measures 11.1 cm. IMPRESSION: 1. No sonographic correlate for the patient's symptoms. Reviewed, dictated and finalized at location A.
== END 2021-08-13 15:29 | disposition home or self-care (01) ==
PROVIDERS: PCP Internal Medicine; Visit Provider Internal Medicine
DX: R10.12 Left upper quadrant pain (principal)
CPT/HCPCS: 76700

== ENCOUNTER 2022-07-30 21:02 | Emergency (ER) | payer BC, SELFPAY ==
[2022-07-30] VITALS (13 sets, daily range): BP systolic 107–141; BP diastolic 78–97; PULSE 71–91; RESP 13–20; TEMP 36.7; O2SAT 93–100
--- NOTE | ~2022-07-30 | XR_ITS ---
EXAMINATION: XR chest 2V DATE: 07/30/2022 21:29 INDICATION: Chest pain and shortness of breath TECHNIQUE: PA and lateral views of the chest are obtained. COMPARISON: 07/17/2020 FINDINGS: The lungs are free of acute opacities. No pleural effusion or pneumothorax. The cardiomedia stinal silhouette is normal. There is mild thoracic spondylosis. IMPRESSION: 1. No acute cardiopulmonary abnormality. Reviewed, dictated and finalized at location F.
--- NOTE | 2022-07-30 21:03 | ECG_ITS ---
Measurements Intervals [place] Rate: 91 P: 44 TN: 158 QRS: 59 QRSD: 90 T: 32 QT: 324 QTc: 400 Interpretive Statements SINUS RHYTHM NONSPECIFIC T-WAVE ABNORMALITY ABNORMAL ECG COMPARED TO ECG 07/17/2020 16:39:28 T-WAVE ABNORMALITY NOW PRESENT Electronically Signed On 07-31-2022 9:37:00 CDT by Steven Evans M.D.
[2022-07-30 21:30] LABS: Basophils Percent Auto 0.6 % (0.2-1.2); Eosinophils Absolute Auto 0.1 K/mm3 (0-0.3); Eosinophils Percent Auto 1.8 % (0-4.4); Hematocrit 38.9 % (37.0-47.0); Hemoglobin 13.3 g/dL (12.0-15.0); Immature Granulocyte Absolute 0.04 K/mm3 (0.00-0.031); Immature Granulocyte Percent A 0.6 % (0-0.5); Lymphocytes Absolute Auto 2.38 K/mm3 (0.9-3.2); Lymphocytes Percent Auto 33.9 % (18.3-44.2); Mean Corpuscular HGB Conc 34.2 g/dl (32-36); Mean Corpuscular Hemoglobin 31.2 pg (26-34); Mean Corpuscular Volume 91.3 fl (80-100); Mean Platelet Volume 9.3 fl (7.4-10.4); Monocytes Absolute Auto 0.5 K/mm3 (0.1-0.6); Monocytes Percent Auto 7.1 % (2.6-8.5); Neutrophils Absolute Auto 3.9 K/mm3 (1.3-6.7); Platelet Count Result 199 k/mm3 (150-375); Red Blood Count 4.26 M/mm3 (4.2-5.4); Red Cell Distribution Width 12.3 % (11.5-14.5)
--- NOTE | 2022-07-30 21:31 | PC.NURSE ---
Pt c/o epigastric pain, described as pressure, that radiates straight through to her back onset 1900 this evening. Pt states she was just standing around talking to her friends when this started. States she became very dizzy and had to sit down with her head between her legs. She also c/o nausea, tingling in her legs, and SOB. Respiratory rate regular and non-labored. Skin warm and dry. No increased work of breathing noted. library monitor shows normal sinus rhythm at a rate in the 80s.
[2022-07-30 21:40] LABS: Alanine Aminotransferase 27 U/L (6-35); Albumin Level 4.5 g/dL (3.5-5.1); Alkaline Phosphatase 66 U/L (38-126); Anion Gap 4 mmol/L (8-16); Aspartate Amino Transferase 26 U/L (14-36); Bilirubin,Total 0.6 mg/dL (0.2-1.3); Blood Urea Nitrogen 8 mg/dL (7-17); Carbon Dioxide 30 mmol/L (22-30); Chloride 104 mmol/L (98-107); Estimated CRCL calculation 85 ml/min; Estimated Glomerular Filt Rate > 60; Glucose 90 mg/dL (65-110); Lipase 238 U/L (23-300); Potassium 3.7 mmol/L (3.4-5.0); Prothrombin Time 13.3 Seconds (11.1-14.7); Sodium 138 mmol/L (137-145)
[2022-07-30 21:41] LABS: Partial Thromboplastin Time 29.5 SECONDS (22.3-36.8)
[2022-07-30 21:51] LABS: Troponin I < 0.012 ng/mL (0.000-0.034)
[2022-07-30] MEDS: SODIUM CHLORIDE 0.9% IV 1,000 ML 999 ML IV CONT (22:23)
[2022-07-30 22:36] LABS: D Dimer 0.37 ug/mL (<0.48)
[2022-07-30 22:46] LABS: NT Pro B Type Natriuretic Pept 23 pg/mL (19.9-100)
[2022-07-31] VITALS: PULSE 73; RESP 15
[2022-07-31 00:01] VITALS: BP 112/80; PULSE 72; RESP 13
[2022-07-31 00:39] LABS: Troponin I < 0.012 ng/mL (0.000-0.034)
[2022-07-31 01:00] VITALS: BP 119/84; PULSE 87; RESP 19; O2SAT 100
--- NOTE | 2022-07-31 01:01 | ED.GENADULT ---
HPI - General Adult General Chief complaint: Chest Pain Stated complaint: CP, SOB, syncope, HTN Time Seen by Provider: 07/30/22 21:22 History of Present Illness HPI narrative: This is a 42-year-old female history of anxiety depression presenting ED with chief complaint of chest pain and shortness of breath. Patient states that at 6:30 p.m. she states while she was talking Turkish started have a pressure in the center of her chest that radiates to her back. Seven out 10 intensity and comes and goes. She states she has never had symptoms like this in the past although there is a note in her system from 2 years ago with a similar presentation. There are no exacerbating alleviating factors. Associated with shortness of breath and nausea. She felt like she was going to pass out. She has not had vomiting fever chills cough. She has no risk factors for DVT/PE. Related Data Home Medications Medication Instructions Recorded Confirmed buspirone 30 mg tablet 30 mg PO BID 07/17/20 07/09/21 nortriptyline 10 mg capsule 20 mg PO HS 07/17/20 07/09/21 verapamil 120 mg tablet,extended 120 mg PO DAILY 07/17/20 07/09/21 release sertraline 100 mg tablet (Zoloft) 100 mg PO BID 05/10/21 07/09/21 ketorolac 0.5 % eye drops (Acular) 1 drp EACH EYE Q8H 06/01/21 07/09/21 lactobacillus combination no.9 4 400,000 cell PO DAILY 06/01/21 07/09/21 billion cell capsule (Adult 50 Plus Probiotic) lysine 1,000 mg tablet 1,000 mg PO DAILY 06/01/21 07/09/21 magnesium 200 mg tablet 400 mg PO DAILY 06/01/21 07/09/21 calcium polycarbophil 625 mg 1,250 mg PO BID 06/07/21 07/09/21 tablet (Fiber-Lax) riboflavin (vitamin B2) 400 mg 400 mg PO DAILY 06/07/21 07/09/21 tablet spironolactone 25 mg tablet 25 mg PO DAILY 06/07/21 07/09/21 valacyclovir 1 gram tablet 1,000 mg PO DAILY PRN other 06/07/21 07/09/21 (Valtrex) vitamin E (dl, acetate) 180 mg 180 mg PO DAILY 06/07/21 07/09/21 (400 unit) capsule Allergies Allergy/AdvReac Type Severity Reaction Status Date / Time No Known Allergies Allergy Unknown Verified 07/09/21 13:14 [facility] Past Medical History Medical History Abdominal adhesions Obese Patient denies significant medical history Surgical History Surgical History H/O colectomy History of cholecystectomy History of hysterectomy Hx of endometriosis Family History Family History Grandparent Hypertension Cerebrovascular accident Malignant neoplasm of prostate Family history of coronary artery disease Diabetes mellitus Other Breast cancer Cancer Heart disease Kidney disease Nervous disorder Social History Social History Smoking status: Never smoker Second hand tobacco smoke exposure: No Alcohol intake: current Drinks per week: 2 Alcohol use details: socially on the weekend Substance use: never Substance use type: does not use Living arrangements: with family Occupation/Education: occupation 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 EYES: EOMI, NOSE: Atraumatic NECK: Trachea midline RESPIRATORY: No increased rate of breathing , clear to auscultation CARDIOVASCULAR: RRR, no peripheral edema ABDOMINAL: Non-distended soft nontender no guarding rebound MUSCULOSKELETAl: No obvious deformities NEURO: Alert. Moving 4/4 extremities SKIN:: Warm, dry. Normal color PSYCHIATRIC: Normal affect Course Vital Signs Vital signs: Vital Signs Temperature 98.1 F 07/30/22 21:10 Pulse Rate 91 07/30/22 21:10 Respiratory Rate 18 07/30/22 21:10 Blood Pressure 131/88
== END 2022-07-31 01:13 | disposition home or self-care (01) ==
PROVIDERS: Emergency Provider Emergency Medicine; PCP Internal Medicine
DX: R07.9 Chest pain, unspecified (principal); E66.9 Obesity, unspecified; Z68.36 Body mass index [BMI] 36.0-36.9, adult; F41.9 Anxiety disorder, unspecified; F32.A Depression, unspecified; Z90.49 Acquired absence of other specified parts of digestive tract; Z90.710 Acquired absence of both cervix and uterus; R94.31 Abnormal electrocardiogram [ECG] [EKG]
CPT/HCPCS: 36415; 71046; 80053; 83690; 83880; 84484; 85025; 85380; 85610; 85730; 93005; 96360; 99284; J7030